=== PATIENT | male | born 1985 | race Caucasian/White ===

== ENCOUNTER 2016-07-18 09:57 | Emergency (ER) | payer SELFPAY ==
[2016-07-18 10:56] LABS: ABSOLUTE LYMPHOCYTES (AUTO) 0.9 10^3/uL (0.5-4.7); ABSOLUTE MONOCYTES (AUTO) 1.1 10^3/uL (0.1-1.4); ABSOLUTE NEUT (AUTO) 10.8 10^3/uL (1.7-8.2); BASOPHILS % (AUTO) 0.2 % (0-2); EOSINOPHILS % (AUTO) 0.2 % (0-6); HEMATOCRIT 45.7 % (37.9-51.0); HGB HCT DIFFERENCE -0.7; LYMPHOCYTES % (AUTO) 7.3 % (13-45); MEAN CORPUSCULAR HEMOGLOBIN 28.2 pg (27.0-33.4); MEAN CORPUSCULAR HGB CONC 32.8 g/dL (32.0-36.0); MEAN CORPUSCULAR VOLUME 86 fl (80-97); MONOCYTES % (AUTO) 8.5 % (3-13); RED BLOOD COUNT 5.31 10^6/uL (4.35-5.55); RED CELL DISTRIBUTION WIDTH 13.9 % (11.5-14.0); SEGMENTED NEUTROPHILS % (AUTO) 83.8 % (42-78); WHITE BLOOD COUNT 12.9 10^3/uL (4.0-10.5)
[2016-07-18 11:16] LABS: ALANINE AMINOTRANSFERASE 56 U/L (21-72); ALBUMIN 4.3 g/dL (3.5-5.0); ALKALINE PHOSPHATASE 66 U/L (38-126); ANION GAP 14 (5-19); ASPARTATE AMINO TRANSFERASE 30 U/L (17-59); BILIRUBIN,DIRECT 0.3 mg/dL (0.0-0.4); BILIRUBIN,TOTAL 0.5 mg/dL (0.2-1.3); BLOOD UREA NITROGEN 13 mg/dL (7-20); CALCIUM 9.2 mg/dL (8.4-10.2); CARBON DIOXIDE 29 mmol/L (22-30); CHLORIDE 98 mmol/L (98-107); CREATININE RESULT 0.98 mg/dL (0.52-1.25); GLUCOSE 91 mg/dL (75-110); POTASSIUM 4.3 mmol/L (3.6-5.0); SODIUM 140.7 mmol/L (137-145); TOTAL PROTEIN 7.1 g/dL (6.3-8.2)
[2016-07-18 11:17] LABS: ALCOHOL < 10 mg/dL (NONE DETECTED)
--- NOTE | 2016-07-18 12:30 | ER Document Report ---
ED General - General Chief Complaint: Overdose Stated Complaint: POSSIBLE OVERDOSE Time Seen by Provider: 07/18/16 10:07 - HPI Patient complains to provider of: Accidental overdose Notes: Patient is coming in after being found unresponsive by bystanders. Patient was seen by EMS on the hypoxic lethargic patient does admit to smoking heroin. Denies any suicidal homicidal ideation patient states she normally smokes multiple back to the time states this time is only smoking 1 bag states he is never passed out or overdose before. Patient states that his heroin was obtained from a local known dealer and is not worried by any contaminated substances. Upon evaluation patient mildly tachycardic however he is alert patient denies any alcohol or any other drug abuse. Patient denies injecting. Patient denies any use of methadone fentanyl - Related Data Allergies/Adverse Reactions: No Known Allergies Allergy (Verified 07/18/16 10:06) Past Medical History - Social History Smoking Status: Current Every Day Smoker Chew tobacco use (# tins/day): No Frequency of alcohol use: None Drug Abuse: Heroin Family History: Reviewed & Not Pertinent Neurological Medical History: Reports: Hx Migraine Musculoskeltal Medical History: Reports Hx Musculoskeletal Trauma - dislocated trauma sprained ankle Surgical Hx: Negative - Immunizations Immunizations up to date: Yes Hx Diphtheria, Pertussis, Tetanus Vaccination: Yes Review of Systems - Review of Systems Constitutional: No symptoms reported EENT: No symptoms reported Cardiovascular: No symptoms reported Respiratory: No symptoms reported Gastrointestinal: No symptoms reported Genitourinary: No symptoms reported Male Genitourinary: No symptoms reported Musculoskeletal: No symptoms reported Skin: No symptoms reported Hematologic/Lymphatic: No symptoms reported Neurological/Psychological: No symptoms reported -: Yes All other systems reviewed and negative Physical Exam - Vital signs Vitals: Resp Pulse Ox 8 L 92 07/18/16 10:06 07/18/16 10:06 Interpretation: Normal - General General appearance: Appears well, Alert - HEENT Head: Normocephalic, Atraumatic Eyes: Normal Pupils: PERRL - Respiratory Respiratory status: No respiratory distress Chest status: Nontender Breath sounds: Normal Chest palpation: Normal - Cardiovascular Rhythm: Regular Heart sounds: Normal auscultation Murmur: No - Abdominal Inspection: Normal Distension: No distension Bowel sounds: Normal Tenderness: Nontender Organomegaly: No organomegaly - Back Back: Normal, Nontender - Extremities General upper extremity: Normal inspection, Nontender, Normal color, Normal ROM , Normal temperature General lower extremity: Normal inspection, Nontender, Normal color, Normal ROM , Normal temperature, Normal weight bearing. No: Ted's sign - Neurological Neuro grossly intact: Yes Cognition: Normal Orientation: AAOx4 [place] Coma Scale Eye Opening: Spontaneous [place] Coma Scale Verbal: Oriented [place] Coma Scale Motor: Obeys Commands Jc Coma Scale Total: 15 Speech: Normal Motor strength normal: LUE, RUE, LLE, RLE Sensory: Normal - Psychological Associated symptoms: Normal affect, Normal mood - Skin Skin Temperature: Warm Skin Moisture: Dry Skin Color: Normal Course - Re-evaluation Re-evalutation: 07/18/16 13:59 Patient was observed in the ER no signs of hypoxia patient remained alert and oriented. Patient was educated about the use of opiates. Patient was given resources to follow-up with for possible opiate addiction. Patient was discharged - Vital Signs Vital signs: Temp Pulse Resp BP Pulse Ox 98.4 F 112 H 7 L 158/120 H 100 07/18/16 10:07 07/18/16 10:07 07/18/16 13:14 07/18/16 13:14 07/18/16 13:14 - Laboratory Result Diagrams: 07/18/16 10:40 07/18/16 10:40 Laboratory results interpreted by me: 07/18/16 07/18/16 10:40 10:40 WBC 12.9 H Seg Neutrophils % 83.8 H Lymphocytes % 7.3 L Absolute Neutrophils 10.8 H Salicylates < 1.0 L Acetaminophen < 10 L Discharge - Discharge Clinical Impression: Opiate use, Passed out Condition: Good Disposition: HOME, SELF-CARE Instructions: Syncopal Episode ([facility]) Additional Instructions: Your laboratory today does not reveal any critical etiology of why you passed out. I would be concerned that there may be other foreign substances and your heroin such as fentanyl or sufentanil. The substances are stronger and can cause you to overdose and possibly of overdose. Attached are resources that you may use to help with your use of heroin. Return to the ER if symptoms worsen.
[2016-07-18 13:23] VITALS: BP 158/120
--- NOTE | 2016-07-18 17:00 | EKG REPORT ---
SEVERITY:- OTHERWISE NORMAL ECG - SINUS ARRHYTHMIA, RATE 82-103 VENTRICULAR PREMATURE COMPLEX : Confirmed by: Tray Spears MD 18-Jul-2016 16:59:44
== END 2016-07-18 13:23 | disposition home or self-care (01) ==
LOC: ER 09:57
DX: F11.90 Opioid use, unspecified, uncomplicated (principal); R00.0 Tachycardia, unspecified; F17.200 Nicotine dependence, unspecified, uncomplicated
CPT/HCPCS: 36415; 80053; 80307; 85025; 93005; 93010; 99284